=== PATIENT | male | born 1980 | race Caucasian/White ===

== ENCOUNTER 2016-11-02 08:49 | Emergency (ER) | payer BC ==
[2016-11-02 08:57] VITALS: BP 123/77
--- NOTE | 2016-11-02 09:49 | EDM.PDOC ---
ED HPI GENERAL MEDICAL PROBLEM - General Chief Complaint: Eye Problems Stated Complaint: CANT SEE OUT OF LT EYE Time Seen by Provider: 11/02/16 09:12 Source of Information: Reports: Patient History Limitations: Reports: No Limitations - History of Present Illness INITIAL COMMENTS - FREE TEXT/NARRATIVE: The patient presents with decreased vision and pain to the left eye. He took out his contacts 2 days ago and ever since then he has had troubles. He had to drive yesterday and that was tough. He denies any trauma to his eye. It does not feel like there is anything his his eye. He has no fever, chills, cough, congestion or runny nose. He has not had trouble with that eye in the past. He has a hard time opening his eye and when he does he cannot see much. He can see light and that does bother him. Onset: Gradual Duration: Day(s): (2) Quality: Reports: Sharp Severity: Severe Improves with: Reports: None Worsens with: Reports: None Associated Symptoms: Reports: No Other Symptoms Left Eye Pain Score (Numeric/FACES): 8 - Related Data Allergies Allergy/AdvReac Type Severity Reaction Status Date / Time No Known Allergies Allergy Verified 11/02/16 08:57 Home Meds: Home Meds . [No Known Home Meds] 11/02/16 [History] Past Medical History - Past Health History Medical/Surgical History: Denies Medical/Surgical History Social & Family History - Tobacco Use Smoking Status *Q: Current Every Day Smoker Years of Tobacco use: 20 Packs/Tins Daily: 1 - Recreational Drug Use Recreational Drug Use: No ED ROS GENERAL - Review of Systems Review Of Systems: See Below Constitutional: Reports: No Symptoms HEENT: Reports: Eye Pain Respiratory: Reports: No Symptoms Cardiovascular: Reports: No Symptoms Endocrine: Reports: No Symptoms GI/Abdominal: Reports: No Symptoms : Reports: No Symptoms Musculoskeletal: Reports: No Symptoms Skin: Reports: No Symptoms ED EXAM GENERAL W FULL EYE - Physical Exam Exam: See Below Exam Limited By: No Limitations General Appearance: Alert, No Apparent Distress Eye Exam: Left Eye: Conjunctival Injection, Corneal Abrasion, Vision Changes ( He can see light and shadows), Bilateral Eye: EOMI, PERRL Visual Acuity (R) 20/: 20 Visual Acuity (L) 20/: 0 (He can see light and some shadows) Eyelids: Left: Edema (Mild), Lid Everted for Exam Conjunctiva & Sclera: Left: Conjunctival Edema, Injected Cornea Exam: Left: Corneal Abrasion, Cloudy Cornea, Examined with Flourescein Extraocular Movements: Bilateral: Intact Pupillary Size: Bilateral: 4 mm Pupillary Reaction: Left: Sluggish Anterior Chamber: Left: Cell Flare Ears: Normal External Exam Nose: Normal Inspection Head: Atraumatic, Normocephalic Neck: Normal Inspection Course - Vital Signs Last Recorded V/S: Last Vital Signs Temp 97.9 F 11/02/16 08:55 Pulse 68 11/02/16 08:55 Resp 16 11/02/16 08:55 BP 123/77 11/02/16 08:55 Pulse Ox 99 11/02/16 08:55 - Re-Assessments/Exams Free Text/Narrative Re-Assessment/Exam: 11/02/16 10:01 The patient has a corneal abrasion and iritis. I will give him 2 drops of tobradex here and I called Dr Ventura's office and he can see him at 1pm today. I will also give him a note for work and something for pain. Departure - Departure Time of Disposition: 10:10 Disposition: Home, Self-Care 01 Condition: Good Clinical Impression: Iritis Corneal abrasion Qualifiers: Encounter type: initial encounter Laterality: left Qualified Code(s): S05.02XA - Injury of conjunctiva and corneal abrasion without foreign body, left eye, initial encounter - Discharge Information Forms: ED Department Discharge, Return to Work/School Form Additional Instructions: Put 2 drops of the tobradex every 2 hours while awake. Take the hydrocodone as needed for pain. Follow up with Dr Ventura at 1pm today. Please return if you are worse.
[2016-11-02] MEDS ORDERED: Dexamethasone/Tobramycin 0.1-0.3% Ophth Susp 5 ML Bottle EYELF ONE (10:00)
== END 2016-11-02 10:22 | disposition home or self-care (01) ==
LOC: JD.ED 08:49
DX: S05.02XA Injury of conjunctiva and corneal abrasion without foreign body, left eye, initial encounter (principal); H20.9 Unspecified iridocyclitis; F17.210 Nicotine dependence, cigarettes, uncomplicated; X58.XXXA Exposure to other specified factors, initial encounter
CPT/HCPCS: 99283; A9270

== ENCOUNTER 2018-01-23 13:49 | Emergency (ER) | payer BC, OTHER ==
[2018-01-23 14:05] VITALS: BP 142/91
--- NOTE | 2018-01-23 14:12 | EDM.PDOC ---
ED HPI GENERAL MEDICAL PROBLEM - General Chief Complaint: Upper Extremity Injury/Pain Stated Complaint: LEFT ARM INJURY Time Seen by Provider: 01/23/18 14:11 Source of Information: Reports: Patient, RN Notes Reviewed - History of Present Illness INITIAL COMMENTS - FREE TEXT/NARRATIVE: 37-year-old male comes in with left shoulder, left upper back discomfort. This started several days ago but became quite severe 2 days ago, especially yesterday and today. 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 He now has discomfort left upper back even with his arm just "hanging down in any type of motion of the left arm does make the shoulder and especially the left upper back more uncomfortable. There is been no fall or blow to the back or shoulder. No numbness or tingling. No chest pain or difficulty breathing. Treatments COST MANAGER: Reports: NSAIDS Left Shoulder Pain Score (Numeric/FACES): 6 - Related Data Allergies Allergy/AdvReac Type Severity Reaction Status Date / Time No Known Allergies Allergy Verified 01/23/18 14:05 Home Meds: Home Meds Naproxen [Naprosyn] 500 mg PO Q12HR #20 tab 01/23/18 [Rx] traMADol [Ultram] 50 mg PO Q6H PRN #20 tab 01/23/18 [Rx] Past Medical History - Past Health History Medical/Surgical History: Denies Medical/Surgical History - Past Surgical History HEENT Surgical History: Reports: Oral Surgery Social & Family History - Tobacco Use Smoking Status *Q: Current Every Day Smoker Years of Tobacco use: 20 Packs/Tins Daily: 1 - Caffeine Use Caffeine Use: Reports: Coffee, Energy Drinks, Soda, Tea - Recreational Drug Use Recreational Drug Use: No Review of Systems - Review of Systems Review Of Systems: See Below Mouth/Throat: Reports: No Symptoms Respiratory: Denies: Shortness of Breath, Pleuritic Chest Pain Cardiovascular: Denies: Chest Pain GI/Abdominal: Denies: Abdominal Pain, Nausea, Vomiting Musculoskeletal: Reports: Shoulder Pain, Back Pain (Left shoulder left upper back) Skin: Reports: No Symptoms Neurological: Denies: Numbness, Tingling ED EXAM, GENERAL - Physical Exam Exam: See Below General Appearance: Alert, Mild Distress Neck: Normal Inspection, Supple, Non-Tender Respiratory/Chest: No Respiratory Distress, Lungs Clear, Normal Breath Sounds Cardiovascular: Regular Rate, Rhythm Back Exam: Paraspinal Tenderness, Other (Tenderness superior medial and inferior aspect left scapula). No: Vertebral Tenderness (Left upper back) Extremities: Limited Range of Motion (Left shoulder), Other (Very minimal tenderness left lateral and anterior shoulder). No: Joint Swelling (Left shoulder is not as swollen, no deformity), Increased Warmth, Redness Neurological: No Motor/Sensory Deficits Skin Exam: Warm, Dry Course - Vital Signs Last Recorded V/S: Last Vital Signs Temp 97.1 F 01/23/18 14:01 Pulse 72 01/23/18 14:01 Resp 18 01/23/18 14:01 BP 142/91 H 01/23/18 14:01 Pulse Ox 98 01/23/18 14:01 - Re-Assessments/Exams Free Text/Narrative Re-Assessment/Exam: 01/23/18 17:22 Shoulder x-rays not clinically indicated at this time. His pain is more superior medial and inferior to the left scapula which correlates with repetitive muscle strain injury of that area of his back. Discharge instructions as documented. Departure - Departure Time of Disposition: 14:36 Disposition: Home, Self-Care 01 Condition: Fair Clinical Impression: Upper back strain Qualifiers: Encounter type: initial encounter Qualified Code(s): S29.012A - Strain of muscle and tendon of back wall of thorax, initial encounter - Discharge Information Prescriptions: Naproxen [Naprosyn] 500 mg PO Q12HR #20 tab traMADol [Ultram] 50 mg PO Q6H PRN #20 tab PRN Reason: Pain Instructions: Thoracic Strain, [id number] Referrals: PCP,None [Primary Care Provider] - Forms: ED Department Discharge, ED Return to Work/School Form Additional Instructions: Left arm sling for the next 3-4 days until discomfort resolving, continue to alternate ice and heat left upper back as needed, Naprosyn 500 mg twice daily for pain and inflammation, you may take Tylenol in between doses for extra pain relief up to 3 times daily, you may take tramadol if needed for severe discomfort not relieved by Naprosyn and Tylenol. Physical therapy recommended if this does not get better very quickly, light duty activity for the next 10 days. no lifting more than 20 pounds recommended. Follow-up clinic if not getting back to normal within 8-10 days as expected. Call [phone] if needed for appointment.
== END 2018-01-23 15:05 | disposition home or self-care (01) ==
LOC: JD.ED 13:49
DX: S29.012A Strain of muscle and tendon of back wall of thorax, initial encounter (principal); X50.0XXA Overexertion from strenuous movement or load, initial encounter; F17.210 Nicotine dependence, cigarettes, uncomplicated; Y99.0 Civilian activity done for income or pay
CPT/HCPCS: 99283

== ENCOUNTER 2018-07-31 20:31 | Emergency (ER) | payer SELFPAY ==
[2018-07-31 20:46] VITALS: BP 130/90
--- NOTE | 2018-07-31 20:53 | EDM.PDOC ---
ED HPI GENERAL MEDICAL PROBLEM - General Chief Complaint: Chest Pain Stated Complaint: CHEST PAIN Time Seen by Provider: 07/31/18 20:50 Source of Information: Reports: Patient, RN Notes Reviewed History Limitations: Reports: No Limitations - History of Present Illness INITIAL COMMENTS - FREE TEXT/NARRATIVE: Patient is a 38-year-old male who presents to the ED with his for the evaluation of sudden onset chest tightness. 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 Him and his both note that all he was doing at the time was driving home when he began to feel some left-sided chest tightness and some bilateral numbness and tingling into his arms. He also notes a mild tremor in his feet. He states there was some shortness of breath associated with this as well. He notes a history of a previous panic attack and this feels somewhat similar he is a smoker and smokes around 5 cigarettes per day, uses alcohol occasionally during the week, denies any drug use it, uses 2 cups of coffee during the day. He is not on any other medications, he has not had any surgeries, he does not have any allergies, nor does he have a primary care provider. He states that he has not had any increased stress at home. Left Chest Pain Score (Numeric/FACES): 5 - Related Data Allergies Allergy/AdvReac Type Severity Reaction Status Date / Time No Known Allergies Allergy Verified 07/31/18 20:44 Home Meds: Home Meds . [No Known Home Meds] 07/31/18 [History] Past Medical History - Past Health History Medical/Surgical History: Denies Medical/Surgical History - Past Surgical History HEENT Surgical History: Reports: Oral Surgery Social & Family History - Tobacco Use Smoking Status *Q: Current Every Day Smoker Years of Tobacco use: 30 Packs/Tins Daily: 0.2 - Caffeine Use Caffeine Use: Reports: Coffee, Energy Drinks, Soda, Tea - Alcohol Use Days Per Week of Alcohol Use: 2 Number of Drinks Per Day: 6 Total Drinks Per Week: 12 - Recreational Drug Use Recreational Drug Use: No ED ROS GENERAL - Review of Systems Review Of Systems: See Below Constitutional: Reports: No Symptoms HEENT: Reports: No Symptoms Respiratory: Reports: Shortness of Breath Cardiovascular: Reports: Chest Pain Endocrine: Reports: No Symptoms GI/Abdominal: Reports: No Symptoms : Reports: No Symptoms Musculoskeletal: Reports: Arm Pain (bilateral arm numbness/tingling) Skin: Reports: No Symptoms Neurological: Reports: Numbness, Tingling. Denies: Headache Psychiatric: Reports: Other (hx/o panic attack) Hematologic/Lymphatic: Reports: No Symptoms Immunologic: Reports: No Symptoms ED EXAM, GENERAL - Physical Exam Exam: See Below Exam Limited By: No Limitations General Appearance: Alert, WD/WN, No Apparent Distress, Anxious (Somewhat anxious appearing) Eye Exam: Bilateral Eye: EOMI Ears: Normal External Exam Throat/Mouth: Normal Inspection, Normal Lips, Normal Teeth, Normal Gums, Normal Oropharynx, Normal Voice, No Airway Compromise Head: Atraumatic, Normocephalic Neck: Normal Inspection, Supple, Non-Tender, Full Range of Motion Respiratory/Chest: No Respiratory Distress, Lungs Clear, Normal Breath Sounds, No Accessory Muscle Use, Chest Non-Tender Cardiovascular: Normal Peripheral Pulses, Regular Rate, Rhythm, No Murmur GI/Abdominal: Normal Bowel Sounds, Soft, Non-Tender, No Distention, No Mass Back Exam: Normal Inspection Extremities: Normal Inspection, Normal Range of Motion, Normal Capillary Refill Neurological: Alert, Oriented, Normal Cognition, Normal Gait, No Motor/Sensory Deficits Psychiatric: Normal Affect, Normal Mood Skin Exam: Warm, Dry, Intact, Normal Color, No Rash EKG INTERPRETATION EKG Date: 07/31/18 Time: 20:59 Rhythm: NSR Rate (Beats/Min): 97 [place]: Normal P-Wave: Present QRS: Normal ST-T: Normal QT: Normal Comparison: NA - No Prior EKG EKG Interpretation Comments: reviewed by Dr. Tamayo Course - Vital Signs Last Recorded V/S: Last Vital Signs Temp 97.4 F 07/31/18 20:44 Pulse 108 H 07/31/18 20:44 Resp 18 07/31/18 20:44 BP 130/90 07/31/18 20:44 Pulse Ox 95 07/31/18 20:44 - Orders/Labs/Meds Orders: Active Orders 24 hr Category Date Time Status EKG Documentation Completion [RC] STAT Care 07/31/18 20:56 Ordered Meds: Medications Discontinued Medications Generic Name Dose Route Start Last Admin Trade Name Freq PRN Reason Stop Dose Admin Lorazepam 0.5 mg 07/31/18 21:13 07/31/18 21:23 Ativan PO 07/31/18 21:14 0.5 mg ONETIME ONE Administration - Re-Assessments/Exams Free Text/Narrative Re-Assessment/Exam: 07/31/18 21:21 Patient presents to the ED for the evaluation of sudden onset chest tightness and bilateral arm numbness/tingling. This is suspicious for a panic attack, I did obtain an EKG and it was within normal limits at this time. I did order 0.5 mg PO Ativan to see if this doesn't help his situation. 07/31/18 22:00 Patient was reassessed at bedside and states that he does feel better after the Ativan. He notes that his muscles are low but sore from being tense I did recommend that he take some Tylenol at appropriate when he gets home. I will provide him with a few tablets of Ativan for PRN use at feelings of increased anxiety and I have also recommended that he set up with a primary care provider. Departure - Departure Time of Disposition: 22:01 Disposition: Home, Self-Care 01 Condition: Fair Clinical Impression: Panic attack Instructions: Panic Attack, [id number] Referrals: PCP,None [Primary Care Provider] - Forms: ED Department Discharge Additional Instructions: You have been evaluated in the ED tonight for your chest tightness and arm numbness. EKG was within normal limits and did not demonstrate any sign of acute heart attack. This is likely due to anxiety in nature. You have been provided with prescription for Ativan (lorazepam) 0.5 mg, please take one tab by mouth as needed for feelings of increased anxiety. This is not meant to be a long-term situation, recommend that you set up with a primary care provider to provide you further healthcare needs. Please call and pick a family care provider of your choice. You may take [id number] Tylenol/ibuprofen for general aches and pains. Please return to the ED if your symptoms change or worsen. - My Orders Last 24 Hours: My Active Orders 07/31/18 20:56 EKG Documentation Completion [RC] STAT - Assessment/Plan Last 24 Hours: My Active Orders 07/31/18 20:56 EKG Documentation Completion [RC] STAT
[2018-07-31] MEDS ORDERED: LORazepam 0.5 MG Tab PO ONE (21:13)
== END 2018-07-31 22:12 | disposition home or self-care (01) ==
LOC: JD.ED 20:31
DX: F41.0 Panic disorder [episodic paroxysmal anxiety] (principal); F17.210 Nicotine dependence, cigarettes, uncomplicated
CPT/HCPCS: 93005; 99284; A9270; 93010

== ENCOUNTER 2024-01-03 14:25 | Emergency (ER) | payer MEDICAID ==
[2024-01-03 14:57] LABS: BASOPHILS ABSOLUTE AUTO 0.1 K/mm3 (0.0-0.2); BASOPHILS PERCENT AUTO 1.1 % (0.0-1.0); EOSINOPHILS ABSOLUTE AUTO 0.2 K/mm3 (0.0-0.4); EOSINOPHILS PERCENT AUTO 2.2 % (0.0-6.0); HEMOGLOBIN 14.8 gm/dl (14.0-18.0); IMMATURE GRAN ABSOLUTE AUTO 0.02 K/mm3 (0.00-0.05); IMMATURE GRAN PERCENT AUTO 0.3 % (0.0-0.4); LYMPHOCYTES ABSOLUTE AUTO 2.4 K/mm3 (1.0-4.8); LYMPHOCYTES PERCENT AUTO 32.8 % (24.0-44.0); MEAN CORPUSCULAR HEMOGLOBIN 28.5 pg (28.0-32.0); MEAN CORPUSCULAR HGB CONC 34.4 g/dl (32.0-36.0); MEAN CORPUSCULAR VOLUME 82.7 fl (83.0-99.0); MEAN PLATELET VOLUME 8.6 fl (9.4-12.4); MONOCYTES ABSOLUTE AUTO 0.5 K/mm3 (0.0-0.8); MONOCYTES PERCENT AUTO 6.2 % (0.0-8.0); NEUTROPHILS ABSOLUTE AUTO 4.3 K/mm3 (1.8-7.7); NEUTROPHILS PERCENT AUTO 57.4 % (41.0-71.0); PLATELET COUNT,PLT 333 K/mm3 (150-400); WHITE BLOOD CELL COUNT,WBC 7.41 K/mm3 (3.9-11.3)
[2024-01-03 15:34] LABS: A/G RATIO 1.3 (1-2); ANION GAP 15.8 (5-15); BILIRUBIN TOTAL 0.2 mg/dL (0.2-1.0); CALCIUM 8.9 mg/dL (8.5-10.1); CREATININE 1.1 mg/dL (0.7-1.3); EST CRCL DRUG DOSING (CG) 77.33 mL/min; MAGNESIUM 1.9 mg/dL (1.8-2.4); POTASSIUM,K 3.8 mEq/L (3.5-5.1); PROTEIN TOTAL,TP 7.1 g/dl (6.4-8.2)
[2024-01-03] MEDS: Ketorolac 30 MG/ML SDV IVPUSH ONE (16:16)
[2024-01-03 19:23] VITALS: BP 121/78; PULSE 90
== END 2024-01-03 16:25 | disposition home or self-care (01) ==
LOC: JD.ED 14:25
DX: R07.89 Other chest pain (principal)
CPT/HCPCS: 36415; 71045; 71045-26; 80053; 83735; 83880; 84484; 85025; 93010; 99284; 99285

== ENCOUNTER 2024-02-05 05:15 | Emergency (ER) | payer MEDICAID ==
[2024-02-05 05:24] VITALS: BP 132/75; PULSE 70
[2024-02-05] MEDS: Acetaminophen/oxyCODONE 325-5 MG Tab PO ONE (05:53)
[2024-02-05] MEDS: Ibuprofen 600 MG Tab PO ONE (05:54)
[2024-02-05 06:17] LABS: CORONAVIRUS COVID-19 NAA NEGATIVE (NEGATIVE); INFLUENZA A NAA NEGATIVE (NEGATIVE); RESPIRATORY SYNCYTIAL VIR NAA NEGATIVE (NEGATIVE)
== END 2024-02-05 06:51 | disposition home or self-care (01) ==
LOC: JD.ED 05:15
DX: J32.4 Chronic pansinusitis (principal); Z79.899 Other long term (current) drug therapy
CPT/HCPCS: 0241U; 99283; A9270

== ENCOUNTER 2024-03-05 00:06 | Emergency (ER) | payer MEDICAID ==
[2024-03-05 00:16] VITALS: BP 132/71; PULSE 80
[2024-03-05] MEDS ORDERED: Metoclopramide 10 MG/2 ML SDV IVPUSH ONE (00:20)
[2024-03-05] MEDS ORDERED: HYDROmorphone 0.5 MG/0.5 ML Syringe IVPUSH ONE ×2 (00:20→01:12)
[2024-03-05] MEDS ORDERED: Sodium Chloride 0.9% 1,000 ML IV SCH (00:30)
[2024-03-05] MEDS ORDERED: Nitroglycerin/D5W 25 MG/250 ML BOTTLE IV SCH (00:30)
[2024-03-05] MEDS: Hyoscyamine 0.125 MG Tab.SL SL ONE (00:38)
[2024-03-05 00:51] LABS: BASOPHILS ABSOLUTE AUTO 0.1 K/mm3 (0.0-0.2); BASOPHILS PERCENT AUTO 1.2 % (0.0-1.0); EOSINOPHILS ABSOLUTE AUTO 0.2 K/mm3 (0.0-0.4); IMMATURE GRAN ABSOLUTE AUTO 0.02 K/mm3 (0.00-0.05); IMMATURE GRAN PERCENT AUTO 0.3 % (0.0-0.4); LYMPHOCYTES ABSOLUTE AUTO 2.7 K/mm3 (1.0-4.8); LYMPHOCYTES PERCENT AUTO 41.3 % (24.0-44.0); MEAN CORPUSCULAR HEMOGLOBIN 28.8 pg (28.0-32.0); MEAN CORPUSCULAR HGB CONC 34.1 g/dl (32.0-36.0); MEAN CORPUSCULAR VOLUME 84.4 fl (83.0-99.0); MEAN PLATELET VOLUME 8.8 fl (9.4-12.4); MONOCYTES ABSOLUTE AUTO 0.3 K/mm3 (0.0-0.8); MONOCYTES PERCENT AUTO 4.8 % (0.0-8.0); NEUTROPHILS ABSOLUTE AUTO 3.3 K/mm3 (1.8-7.7); NEUTROPHILS PERCENT AUTO 49.4 % (41.0-71.0); PLATELET COUNT,PLT 325 K/mm3 (150-400); RED BLOOD CELL COUNT 4.86 M/mm3 (4.52-5.90); WHITE BLOOD CELL COUNT,WBC 6.61 K/mm3 (3.9-11.3)
[2024-03-05] MEDS ORDERED: LORazepam 2 MG/ML SDV IVPUSH ONE (01:12)
[2024-03-05 01:22] LABS: A/G RATIO 1.3 (1-2); ALBUMIN 3.8 g/dl (3.4-5.0); ANION GAP 14.3 (5-15); BILIRUBIN TOTAL 0.1 mg/dL (0.2-1.0); BUN/CREATININE RATIO 14.4 (14-18); C-REACTIVE PROTEIN 0.1 mg/dL (<0.30); CALCIUM 9.1 mg/dL (8.5-10.1); CREATININE 0.9 mg/dL (0.7-1.3); EST CRCL DRUG DOSING (CG) 93.53 mL/min; MAGNESIUM 1.6 mg/dL (1.8-2.4); POTASSIUM,K 3.3 mEq/L (3.5-5.1); PROTEIN TOTAL,TP 6.7 g/dl (6.4-8.2)
[2024-03-05] MEDS: Aluminum Hydroxide/Magnesium Hydroxide/Simethicone Susp 30 ML Cup PO ONE (01:49)
[2024-03-05] MEDS ORDERED: Famotidine 20 MG Tab PO ONE (03:10)
== END 2024-03-05 03:25 | disposition home or self-care (01) ==
LOC: JD.ED 00:06
DX: K22.4 Dyskinesia of esophagus (principal); K21.9 Gastro-esophageal reflux disease without esophagitis; F17.210 Nicotine dependence, cigarettes, uncomplicated
CPT/HCPCS: 36415; 71045; 80053; 80307; 83735; 84484; 85025; 85379; 86140; 93005; 99285; A9270